=== PATIENT | female | born 1955 | race Caucasian/White ===

== ENCOUNTER 2017-01-29 14:07 | Emergency (ER) | payer MEDICAID ==
[~2017-01-29] VITALS: Ht 165.1 cm; Wt 85.9 kg
[2017-01-29] MEDS ORDERED: HYDR25TA PO (14:57)
[2017-01-29 17:04] VITALS: BP 155/92
== END 2017-01-29 17:56 | disposition home or self-care (01) ==
LOC: EMS 14:17
DX: R60.0 Localized edema (principal); I10 Essential (primary) hypertension; Z88.1 Allergy status to other antibiotic agents
CPT/HCPCS: 93970; 99284

== ENCOUNTER 2025-08-31 22:02 | Inpatient (IN) | payer OTHER, MEDICAID ==
[~2025-08-31] VITALS: Ht 167.6 cm; Wt 70.3 kg
[~2025-08-31 22:02] MED LIST: HYDR25TA2 PO
[2025-08-31] MEDS: LORazepam 2 MG/ML VIAL IM ONE (22:15)
[2025-08-31 22:54] LABS: PLATELET COUNT (AUTO) 169 K/uL (150-450); RED BLOOD CELL COUNT(AUTO) 3.69 MIL/uL (4.00-5.20); RED CELL DISTRIBUTION WIDTH 14.2 % (11.5-14.5); WHITE BLOOD COUNT (AUTO) 8.7 K/uL (4.5-11.0)
[2025-08-31 23:02] LABS: COVID AG,FIA SOURCE NASAL SWAB
[2025-08-31 23:04] LABS: CALCIUM, TOTAL 8.5 mg/dL (8.8-10.5); CREATININE 0.97 mg/dL (0.60-1.30); GLOMERULAR FILTR. RATE CALC 57.0 mL/min (>60); GLUCOSE,RANDOM 88.0 mg/dL (70-110); SODIUM SERUM 142.0 mmol/L (136-145); UREA NITROGEN, BLOOD 13.0 mg/dL (7-18)
[2025-08-31 23:21] LABS: RBC MORPHOLOGY COMMENT ABNORMAL RBC MORPH
[2025-08-31 23:22] LABS: SARS-COV2 (COVID) ANTIGEN,FIA Negative (Negative)
[2025-09-01 00:37] LABS: APPEARANCE,URINE CLEAR (CLEAR); GLUCOSE, URINE (UA) NEGATIVE (NEGATIVE); LEUKOCYTE ESTERASE ,URINE TRACE (NEGATIVE); NITRATE,URINE NEGATIVE (NEGATIVE); OCCULT BLOOD,URINE NEGATIVE (NEGATIVE); PH,URINE DRUG SCREEN 5.0 (5.0-8.0); SPECIFIC GRAVITIY, URINE 1.007 (1.003-1.030)
[2025-09-01 00:43] LABS: ALCOHOL, URINE DRUG SCREEN POSITIVE (NEGATIVE); AMPHET/METH SCREEN,URINE NEGATIVE (NEGATIVE); BARBITURATE SCREEN, URINE NEGATIVE (NEGATIVE); CANNABINOID SCREEN,URINE NEGATIVE (NEGATIVE); COCAINE SCREEN,URINE NEGATIVE (NEGATIVE); METHADONE SCREEN, URINE NEGATIVE (NEGATIVE)
[2025-09-01 01:07] LABS: SQUAMOUS EPITHELIAL CELL,UR Few /LPF (None Seen)
[2025-09-01] MEDS ORDERED: ZOLPIDEM TARTRATE 10 MG TABLET PO PRN (01:45)
[2025-09-01 02:18] VITALS: O2SAT 96
[2025-09-01 02:55] VITALS: BP 139/80; PULSE 66; RESP 17; TEMP 97.9; O2SAT 96
[2025-09-01] MEDS ORDERED: PNEUMOCOCCAL VACCINE POLYVALENT 0.5 ML SYRINGE [PPSV23] IM. ONE (04:45)
[2025-09-01] MEDS ORDERED: INFLUENZA VIRUS VACCINE TVS (6MO+) 2025-26/PF 45 MCG/0.5 ML SYRINGE IM. ONE (04:45)
[2025-09-01] MEDS ORDERED: DOCUSATE SODIUM 100 MG CAPSULE PO PRN (06:45)
[2025-09-01] MEDS ORDERED: ALBUTEROL SULFATE HFA 90 MCG/PUFF 8 GM INHALER IH PRN (06:45)
[2025-09-01] MEDS ORDERED: MAGNESIUM HYDROXIDE SUSPENSION 30 ML UDCUP PO PRN (06:45)
[2025-09-01] MEDS ORDERED: LOPERAMIDE HCL 2 MG CAPSULE PO PRN (06:45)
[2025-09-01] MEDS ORDERED: ACETAMINOPHEN 325 MG TABLET PO PRN (06:45)
[2025-09-01] MEDS ORDERED: PETROLATUM,WHITE 28 GM JELLY TP PRN (06:45)
[2025-09-01] MEDS ORDERED: ONDANSETRON 4 MG TABLET PO PRN (06:45)
[2025-09-01] MEDS ORDERED: MAG HYDROX/ALUMINUM HYD/SIMETH ES 30 ML SUSPENSION UDCUP PO PRN (06:45)
[2025-09-01] MEDS ORDERED: GuaiFENesin/D-METHORPHAN [SUGAR-FREE] 200-20MG/10 ML SYRUP UDCUP PO PRN (06:45)
[2025-09-01] MEDS ORDERED: NICOTINE 14 MG/24 HOUR PATCH TD PRN (06:45)
[2025-09-01 08:33] VITALS: BP 122/80; RESP 16; TEMP 99.1; O2SAT 98
[2025-09-01 20:12] VITALS: BP 140/96; PULSE 87; RESP 19; TEMP 98; O2SAT 98
[2025-09-02 08:27] LABS: PLATELET COUNT (AUTO) 171 K/uL (150-450); RED BLOOD CELL COUNT(AUTO) 3.93 MIL/uL (4.00-5.20); RED CELL DISTRIBUTION WIDTH 15.1 % (11.5-14.5); WHITE BLOOD COUNT (AUTO) 5.2 K/uL (4.5-11.0)
[2025-09-02 08:44] LABS: ASPARTATE AMINOTRANSFERASE 38 U/L (15-37); CALCIUM, TOTAL 8.8 mg/dL (8.8-10.5); CREATININE 0.70 mg/dL (0.60-1.30); GLOMERULAR FILTR. RATE CALC > 60 mL/min (>60); GLUCOSE,RANDOM 85 mg/dL (70-110); SODIUM SERUM 141 mmol/L (136-145); TOTAL PROTEIN, SERUM 6.7 g/dL (6.4-8.2); UREA NITROGEN, BLOOD 9 mg/dL (7-18)
[2025-09-02 08:58] LABS: CHOL/HDL RATIO 2.0 (3.9-5.7); LDL CHOL (CALC.) 59.0 mg/dL (0-130)
[2025-09-02 09:00] VITALS: BP 126/64; PULSE 74; RESP 18; TEMP 98.1; O2SAT 100
[2025-09-02 11:03] LABS: RBC MORPHOLOGY COMMENT ABNORMAL RBC MORPH
[2025-09-02 20:16] VITALS: BP 158/96; PULSE 100; RESP 19; TEMP 97.7; O2SAT 99
[2025-09-03 08:39] VITALS: BP 144/92; PULSE 104; RESP 18; TEMP 98.6; O2SAT 97
[2025-09-03] MEDS: IBUPROFEN 400 MG TABLET PO PRN (08:43)
== END 2025-09-03 17:21 | disposition home or self-care (01) | DRG 885 ==
LOC: B2X 09-01 01:20
PROVIDERS: ADMIT Psychiatry & Neurology Psychiatry; ATTEND Psychiatry & Neurology Psychiatry
PROC: GZHZZZZ Group Psychotherapy (ICD-10-PCS; principal; 2025-09-01)
DX: F33.2 Major depressive disorder, recurrent severe without psychotic features (principal); R45.851 Suicidal ideations; I10 Essential (primary) hypertension; Y90.6 Blood alcohol level of 120-199 mg/100 ml; E87.6 Hypokalemia; Z20.822 Contact with and (suspected) exposure to COVID-19; F10.229 Alcohol dependence with intoxication, unspecified; Z90.49 Acquired absence of other specified parts of digestive tract; Z98.84 Bariatric surgery status; Z90.710 Acquired absence of both cervix and uterus; Z88.2 Allergy status to sulfonamides; Z91.51 Personal history of suicidal behavior; Z78.1 Physical restraint status
CPT/HCPCS: 80048; 80053; 80061; 80307; 81001; 83036; 84436; 84443; 85025; G0480